=== PATIENT | male | born 1990 | race African-American/Black ===

== ENCOUNTER 2018-12-26 17:02 | Emergency (ER) | payer OTHER ==
[~2018-12-26] VITALS: Ht 175.3 cm; Wt 100.0 kg
[2018-12-26] MEDS ORDERED: LEVETIRACETAM 500MG/5ML CUP PO ONE (18:30)
[2018-12-26] MEDS ORDERED: LEVETIRACETAM 500MG TABLET PO NR (18:44)
[2018-12-26 19:15] VITALS: BP 127/80
== END 2018-12-26 19:16 | disposition home or self-care (01) ==
LOC: ER 17:02
DX: G40.909 Epilepsy, unspecified, not intractable, without status epilepticus (principal)
CPT/HCPCS: 93005; 99283; J7040

== ENCOUNTER 2021-07-12 11:35 | Inpatient (IN) | payer SELFPAY ==
[~2021-07-12] VITALS: Ht 177.8 cm; Wt 99.8 kg
[2021-07-12 14:11] LABS: CHLORIDE 102 mEq/L (98-107)
[2021-07-12 14:12] LABS: BASOPHILS % 0.7 % (0.0-2.0); EOSINOPHILS % 2.2 % (0.0-5.0); LYMPHOCYTES % 27.6 % (20.0-50.0); MEAN CORPUSCULAR HEMOGLOBIN 27.1 pg (28.0-32.0); MEAN CORPUSCULAR VOLUME 85.3 fL (80.0-94.0); MEAN PLATELET VOLUME 9.1 fl (7.4-10.4); MONOCYTES % 9.3 % (2.0-8.0); NEUTROPHILS % 60.2 % (40.0-76.0); PLATELET 245 x1000/uL (130-400); RED BLOOD CELL COUNT 5.15 mill/uL (4.7-6.1); RED CELL DISTRIBUTION WIDTH 13.3 % (11.6-14.6)
[2021-07-12 14:15] LABS: ETHANOL BLOOD < 10 mg/dL
[2021-07-12] MEDS ORDERED: LEVETIRACETAM 500MG PREMIX 100 ML IV ONE ×6 (14:45→16:00)
[2021-07-12 15:18] LABS: CLARITY URINE CLEAR (CLEAR); COLOR URINE YELLOW (YELLOW); KETONES URINE NEGATIVE (NEGATIVE); LEUKOCYTE ESTERASE URINE NEGATIVE (NEGATIVE); NITRITE URINE NEGATIVE (NEGATIVE); OCCULT BLOOD URINE NEGATIVE (NEGATIVE); PH URINE 7.5 (4.5-8.0); PROTEIN URINE NEGATIVE (NEGATIVE); SPECIFIC GRAVITY URINE 1.003 (1.005-1.030); UROBILINOGEN URINE 0.2 E.U./dL (0.2-1.0)
[2021-07-12 15:27] LABS: *AMPHETAMINES SCREEN URINE PRESUMTIVE POSITIVE (NEGATIVE); *BARBITURATES SCREEN URINE NEGATIVE (NEGATIVE); *BENZODIAZEPINES SCREEN URINE NEGATIVE (NEGATIVE); *COCAINE SCREEN URINE NEGATIVE (NEGATIVE)
[2021-07-12 15:28] LABS: CANNABINOID URINE SCREEN PRESUMTIVE POSITIVE (NEGATIVE); METHADONE URINE SCREEN NEGATIVE (NEGATIVE); OPIATES URINE SCREEN NEGATIVE (NEGATIVE); PHENCYCLIDINE URINE SCREEN NEGATIVE (NEGATIVE)
[2021-07-13 00:15] VITALS: BP 148/106
[2021-07-13] MEDS ORDERED: LORAZEPAM 2MG/ML CPJ IM PRN (00:30)
[2021-07-13] MEDS ORDERED: LEVE1000 MT (00:31)
[2021-07-13 04:00] VITALS: BP 124/67
[2021-07-13] MEDS ORDERED: LEVETIRACETAM 500MG/5ML CUP PO SCH (09:00)
== END 2021-07-13 07:58 | disposition left against medical advice (07) | DRG 53 ==
LOC: ER 11:39 → 6WST 17:28 → ENRESERV 22:32
PROVIDERS: ADMIT Internal Medicine; ATTEND Internal Medicine
DX: R56.9 Unspecified convulsions (principal); Z53.29 Procedure and treatment not carried out because of patient's decision for other reasons
CPT/HCPCS: 36415; 71045; 80053; 80305; 80307; 80320; 80329; 81003; 83605; 84484; 85025; 93005; 99285; J1953; J7040; G0480